=== PATIENT | male | born 1950 ===

== ENCOUNTER → 2018-03-18 | Outpatient (CLI) | payer MEDICARE ==
[~2018-03-18] MED LIST: CEPH500 PO; Coumadin5 MG PO; LIRA0.6P SC; METF500 PO; OXYACE5T PO; Toprol Xl25 MG PO
== END | disposition home or self-care (01) ==
LOC: PLD 08:11 → LAB SHORT 08:11
DX: L82.1 Other seborrheic keratosis (principal)
CPT/HCPCS: 88305

== ENCOUNTER 2018-09-13 06:55 | Emergency (ER) | payer MEDICARE ==
[~2018-09-13] VITALS: Ht 182.9 cm; Wt 125.2 kg
[~2018-09-13 06:55] MED LIST changes: +ELIQUIS5 MG PO; +PIOG30 PO
[2018-09-13 07:41] LABS: BASOPHILS ABSOLUTE AUTO 0.02 K/mm3 (0.00-0.23); BASOPHILS PERCENT AUTO 0 % (0-2); EOSINOPHILS ABSOLUTE AUTO 0.19 K/mm3 (0.00-0.68); EOSINOPHILS PERCENT AUTO 3 % (0-6); Hematocrit 41.7 % (37.0-53.0); IMMATURE GRAN ABSOLUTE AUTO 0.02 K/mm3 (0.00-0.10); IMMATURE GRAN PERCENT AUTO 0 % (0-1); LYMPHOCYTES ABSOLUTE AUTO 1.83 K/mm3 (0.84-5.20); LYMPHOCYTES PERCENT AUTO 28 % (21-46); MONOCYTES ABSOLUTE AUTO 0.62 K/mm3 (0.16-1.47); MONOCYTES PERCENT AUTO 9 % (4-13); Mean Corpuscular HGB 30.8 pg (26.0-34.0); Mean Corpuscular HGB Conc 33.6 g/dL (31.5-36.5); Mean Corpuscular Volume 92 fL (80-100); Mean Platelet Volume 8.7 fL (9.1-12.4); NEUTROPHILS PERCENT AUTO 59 % (41-73); Platelet Count 190 K/mm3 (150-400); RDW Coefficient Variation 13.1 % (11.7-14.2); RDW Standard Deviation 43.8 fL (35.1-46.3); Red Blood Cell Count 4.54 M/mm3 (4.30-5.90); White Blood Cell Count 6.58 K/mm3 (4.00-11.30)
[2018-09-13 08:03] LABS: Alanine Aminotransfer (ALT/SGP 24 U/L (12-78); Albumin, Blood 3.2 g/dL (3.4-5.0); Albumin/Globulin Ratio 0.9 (0.8-1.8); Alk Phos 64 U/L (50-136); Anion Gap 6 mmol/L (6-16); Aspartate Aminotrans (AST/SGOT 13 U/L (12-37); Bilirubin, Total 0.4 mg/dL (0.1-1.0); Blood Urea Nitrogen 17 mg/dL (8-24); Bun/Creatinine Ratio 19.7 (12.0-20.0); CO2, Blood 25 mmol/L (21-32); Calcium, Blood 8.5 mg/dL (8.5-10.1); Chloride, Blood 109 mmol/L (98-108); Creatinine, Blood 0.86 mg/dL (0.60-1.20); Globulin, Blood 3.4 g/dL (2.2-4.0); Glomerular Filtration Rate >60 (60-); Glucose, Blood 182 mg/dL (70-99); Potassium, Blood 4.1 mmol/L (3.5-5.5); Sodium, Blood 140 mmol/L (136-145); Total Protein, Blood 6.6 g/dL (6.4-8.2); Troponin I <0.015 ng/mL (0.000-0.040)
== END 2018-09-13 11:49 | disposition home or self-care (01) ==
LOC: ER 06:55
PROVIDERS: Emergency Medicine
DX: R07.9 Chest pain, unspecified (principal); E11.9 Type 2 diabetes mellitus without complications; Z79.899 Other long term (current) drug therapy; Z79.84 Long term (current) use of oral hypoglycemic drugs
CPT/HCPCS: 71046; 76705; 80053; 84484; 85025; 85379; 93005; 93010; 99285-25

== ENCOUNTER 2019-01-01 13:42 | Day surgery (SDC) | payer MEDICARE ==
[2019-01-01 15:05] LABS: Automated BF WBC Count 0.154 K/mm3 (0-999); Body Fluid WBC Count 154 /mm3 (0-999)
[2019-01-01 15:19] LABS: Glucose, Body Fluid 130 mg/dL; Lactate Dehydrogenase, Body Fl 203 U/L; Protein, Body Fluid 4.3 g/dL
[2019-01-01 15:20] LABS: Appearance, Body Fluid Clear (Clear); Color, Body Fluid Yellow (None-Yellow); RBC Count, Body Fluid 111 /mm3 (0-0)
[2019-01-01 15:46] LABS: Total Cell Count, Body Fluid 100
== END 2019-01-01 23:25 | disposition home or self-care (01) ==
LOC: US 13:42
PROVIDERS: Physician Assistant
DX: J90 Pleural effusion, not elsewhere classified (principal)
CPT/HCPCS: 32555; 71045; 82945; 83615; 84157; 87070; 87205; 88108; 89051

== ENCOUNTER 2019-01-19 16:59 | Day surgery (SDC) | payer MEDICARE ==
[2019-01-19 15:33] LABS: Automated BF RBC Count 0.147 M/mm3 (0-0); Automated BF WBC Count 0.388 K/mm3 (0-999); Body Fluid WBC Count 388 /mm3 (0-999); RBC Count, Body Fluid 147000 /mm3 (0-0)
[2019-01-19 15:52] LABS: Glucose, Body Fluid 87 mg/dL; Lactate Dehydrogenase, Body Fl 280 U/L; Protein, Body Fluid 4.6 g/dL
[2019-01-19 16:00] LABS: Color, Body Fluid Red (None-Yellow); Total Cell Count, Body Fluid 100
[2019-01-19 16:01] LABS: Appearance, Body Fluid Bloody (Clear)
== END 2019-01-19 23:09 | disposition home or self-care (01) ==
LOC: US 16:59 → MOI PET 16:59
PROVIDERS: Physician Assistant
PROC: 0W993ZZ Drainage of Right Pleural Cavity, Percutaneous Approach (ICD-10-PCS; principal; 2019-01-19)
DX: J90 Pleural effusion, not elsewhere classified (principal); N28.9 Disorder of kidney and ureter, unspecified; R91.8 Other nonspecific abnormal finding of lung field
CPT/HCPCS: 32555; 36415; 71045; 78815; 80053; 82945; 83615; 84157; 85025; 87070; 87075; 87205; 88108; 89051; A9552

== ENCOUNTER 2019-04-03 00:39 | Emergency (ER) | payer MEDICARE ==
[~2019-04-03] VITALS: Ht 182.9 cm; Wt 99.8 kg
[2019-04-03] MEDS ORDERED: METF500 PO (02:05)
[2019-04-03] MEDS ORDERED: PIOG15 PO (02:05)
[2019-04-03] MEDS ORDERED: METO25 PO (02:06)
[2019-04-03] MEDS ORDERED: LIRA0.6P (02:06)
[2019-04-03] MEDS ORDERED: OMEPRAZOLE20 MG PO (02:06)
[2019-04-03] MEDS ORDERED: ELIQUIS5 M2 PO (02:06)
== END 2019-04-03 03:25 | disposition home or self-care (01) ==
LOC: ER 00:39
DX: K59.00 Constipation, unspecified (principal); E11.9 Type 2 diabetes mellitus without complications; Z86.711 Personal history of pulmonary embolism; Z79.84 Long term (current) use of oral hypoglycemic drugs; Z79.01 Long term (current) use of anticoagulants; Z79.899 Other long term (current) drug therapy
CPT/HCPCS: 99283